=== PATIENT | female | born 1995 | race American Indian/Alaskan Native ===

== ENCOUNTER 2019-12-24 14:34 | Emergency (ER) | payer OTHER ==
[2019-12-24 15:01] VITALS: BP 111/74
[2019-12-24] MEDS ORDERED: ONDANSETRON 4 MG ODT TAB PO ONE (17:57)
[2019-12-24] MEDS ORDERED: HYOSCYAMINE SUBL 0.125 MG TAB SL ONE (17:57)
[2019-12-24 18:25] LABS: Basophils % (Auto) 0.3 % (0.0-1.8); Eosinophils % (Auto) 0.2 % (0.0-4.3); Hematocrit 39.5 % (30.3-42.9); Hemoglobin 13.1 gm/dl (10.1-14.3); Lymphocytes # (Auto) 0.6 K/mm3 (1.2-5.4); Lymphocytes % (Auto) 7.6 % (13.4-35.0); Mean Corpuscular HGB Conc 33 % (30-34); Mean Corpuscular Volume 87 fl (79-97); Monocytes # (Auto) 0.4 K/mm3 (0.0-0.8); Monocytes % (Auto) 4.7 % (0.0-7.3); Platelet Count 152 K/mm3 (140-440); Red Blood Count 4.56 M/mm3 (3.65-5.03); Red Cell Distribution Width 13.5 % (13.2-15.2)
[2019-12-24 18:45] LABS: Alanine Aminotransferase 6 units/L (7-56); Albumin 3.8 g/dL (3.9-5); Blood Urea Nitrogen 7 mg/dL (7-17); Calcium 8.6 mg/dL (8.4-10.2); Hemolysis Index 6
[2019-12-24 18:50] LABS: HCG Qualitative,Urine Negative (Negative)
[2019-12-24 18:57] LABS: BUN/Creatinine Ratio 10
[2019-12-24 19:02] LABS: Bacteria,Urine 1+ /HPF (Negative); Bilirubin,Urine NEG (Negative); Blood,Urine NEG (Negative); Color,Urine Yellow (Yellow); Mucus,Urine 1+ /HPF; Protein,Urine <15 mg/dL mg/dL (Negative); Urobilinogen,Urine < 2.0 mg/dL (<2.0)
--- NOTE | 2019-12-24 19:23 | Emergency Department Report ---
ED General Adult HPI - General Chief complaint: Nausea/Vomiting/Diarrhea Stated complaint: SICK Time Seen by Provider: 12/24/19 17:25 Source: patient Mode of arrival: Ambulatory Limitations: No Limitations - History of Present Illness Initial comments: Patient is a 24-year-old female presents emergency room with complaints of nausea and diarrhea that began yesterday. She has associated generalized weakness, fatigue, lightheadedness, mild abdominal cramping, urinary frequency. She denies any dysuria, dark urine, odor to the urine, vaginal discharge or irritation, vomiting, back pain, chest pain, shortness of breath, fever, cough. She denies any recent travel or sick contacts. She denies any past medical history. No allergies medications. Last menstrual cycle December 02. Severity scale (0 -10): 1 - Related Data Previous Rx's Medication Instructions Recorded Last Taken Type Acetaminophen/Codeine [Tylenol #3] 1 tab PO TID PRN #15 tab 01/09/15 Unknown Rx Acyclovir [Zovirax Tab] 800 mg PO Q12H #10 tab 01/09/15 Unknown Rx metroNIDAZOLE [Flagyl TAB] 500 mg PO Q12HR #14 tab 01/09/15 Unknown Rx metroNIDAZOLE 0.75% [Vandazole 1 applicator VG QHS #5 tube 07/07/15 Unknown Rx 0.75% VAGINAL] miSOPROStoL [Cytotec] 400 mcg PO Q4H #6 tablet 07/07/15 Unknown Rx Nitrofurantoin [place]/M-Cryst 100 mg PO Q12HR #14 capsule 03/20/18 Unknown Rx [Macrobid CAP] Amoxicillin [Amoxicillin TAB] 875 mg PO BID #20 tablet 07/26/18 Unknown Rx Ibuprofen [Motrin] 600 mg PO Q8H PRN #20 tablet 07/26/18 Unknown Rx Nystas/Diphen/Xyl Visc/Mylanta 15 ml MM Q4H PRN 5 Days ml 07/26/18 Unknown Rx [Magic Mouthwash] Ondansetron [Zofran Odt] 4 mg PO Q8HR PRN #7 tab.rapdis 12/24/19 Unknown Rx cephALEXin [Keflex] 500 mg PO BID 7 Days #14 cap 12/24/19 Unknown Rx Allergies Allergy/AdvReac Type Severity Reaction Status Date / Time No Known Allergies Allergy Verified 07/26/18 11:49 ED Review of Systems ROS: Stated complaint: SICK Other details as noted in HPI Comment: All other systems reviewed and negative ED Past Medical Hx - Past Medical History Previous Medical History?: Yes - Surgical History Past Surgical History?: No Additional Surgical History: - Social History Smoking Status: Never Smoker Substance Use Type: None - Medications Home Medications: Home Medications Medication Instructions Recorded Confirmed Last Taken Type Acetaminophen/Codeine [Tylenol #3] 1 tab PO TID PRN #15 tab 01/09/15 Unknown Rx Acyclovir [Zovirax Tab] 800 mg PO Q12H #10 tab 01/09/15 Unknown Rx metroNIDAZOLE [Flagyl TAB] 500 mg PO Q12HR #14 tab 01/09/15 Unknown Rx metroNIDAZOLE 0.75% [Vandazole 1 applicator VG QHS #5 tube 07/07/15 Unknown Rx 0.75% VAGINAL] miSOPROStoL [Cytotec] 400 mcg PO Q4H #6 tablet 07/07/15 Unknown Rx Nitrofurantoin [place]/M-Cryst 100 mg PO Q12HR #14 capsule 03/20/18 Unknown Rx [Macrobid CAP] Amoxicillin [Amoxicillin TAB] 875 mg PO BID #20 tablet 07/26/18 Unknown Rx Ibuprofen [Motrin] 600 mg PO Q8H PRN #20 tablet 07/26/18 Unknown Rx Nystas/Diphen/Xyl Visc/Mylanta 15 ml MM Q4H PRN 5 Days ml 07/26/18 Unknown Rx [Magic Mouthwash] Ondansetron [Zofran Odt] 4 mg PO Q8HR PRN #7 tab.rapdis 12/24/19 Unknown Rx cephALEXin [Keflex] 500 mg PO BID 7 Days #14 cap 12/24/19 Unknown Rx ED Physical Exam - General Limitations: No Limitations General appearance: alert, in no apparent distress - Head Head exam: Present: atraumatic, normocephalic - Eye Eye exam: Present: normal appearance - ENT ENT exam: Present: normal orophraynx, mucous membranes moist, TM's normal bilaterally, normal external ear exam - Respiratory Respiratory exam: Present: normal lung sounds bilaterally. Absent: respiratory distress, wheezes, rales, rhonchi, stridor, chest wall tenderness, accessory muscle use, decreased breath sounds, prolonged expiratory - Cardiovascular Cardiovascular Exam: Present: regular rate, normal rhythm, normal heart sounds. Absent: systolic murmur, diastolic murmur, rubs, gallop - GI/Abdominal GI/Abdominal exam: Present: soft, normal bowel sounds. Absent: distended, tenderness, guarding, rebound, rigid - Neurological Exam Neurological exam: Present: alert, oriented X3 - Psychiatric Psychiatric exam: Present: normal affect, normal mood - Skin Skin exam: Present: warm, dry, intact ED Course Vital Signs 12/24/19 14:56 Temperature 98.7 F Pulse Rate 101 H Respiratory 18 Rate Blood Pressure 111/74 [Right] O2 Sat by Pulse 98 Oximetry ED Medical Decision Making - Lab Data Result diagrams: 12/24/19 18:12 12/24/19 18:12 Lab Results 12/24/19 12/24/19 12/24/19 Range/Units 18:12 18:12 18:35 WBC 8.0 (4.5-11.0) K/mm3 RBC 4.56 (3.65-5.03) M/mm3 Hgb 13.1 (10.1-14.3) gm/dl Hct 39.5 (30.3-42.9) % MCV 87 (79-97) fl MCH 29 (28-32) pg MCHC 33 (30-34) % RDW 13.5 (13.2-15.2) % Plt Count 152 (140-440) K/mm3 Lymph % (Auto) 7.6 L (13.4-35.0) % [place] % (Auto) 4.7 (0.0-7.3) % Eos % (Auto) 0.2 (0.0-4.3) % Baso % (Auto) 0.3 (0.0-1.8) % Lymph # (Auto) 0.6 L (1.2-5.4) K/mm3 [place] # (Auto) 0.4 (0.0-0.8) K/mm3 Eos # (Auto) 0.0 (0.0-0.4) K/mm3 Baso # (Auto) 0.0 (0.0-0.1) K/mm3 Seg Neutrophils % 87.2 H (40.0-70.0) % Seg Neutrophils # 7.0 (1.8-7.7) K/mm3 Sodium 134 L (137-145) mmol/L Potassium 3.6 (3.6-5.0) mmol/L Chloride 101.1 (98-107) mmol/L Carbon Dioxide 19 L (22-30) mmol/L Anion Gap 18 mmol/L BUN 7 (7-17) mg/dL Creatinine 0.7 (0.6-1.2) mg/dL Estimated GFR > 60 ml/min BUN/Creatinine Ratio 10 % Glucose 95 (65-100) mg/dL Calcium 8.6 (8.4-10.2) mg/dL Total Bilirubin 0.30 (0.1-1.2) mg/dL AST 11 (5-40) units/L ALT 6 L (7-56) units/L Alkaline Phosphatase 67 (35-129) units/L Total Protein 7.1 (6.3-8.2) g/dL Albumin 3.8 L (3.9-5) g/dL Albumin/Globulin Ratio 1.2 % Urine Color Yellow (Yellow) Urine Turbidity Slightly-cloudy (Clear) Urine pH 5.0 (5.0-7.0) Ur Specific [place] 1.024 (1.003-1.030) Urine Protein <15 mg/dl (Negative) mg/dL Urine Glucose (UA) Neg (Negative) mg/dL Urine Ketones Neg (Negative) mg/dL Urine Blood Neg (Negative) Urine Nitrite Neg (Negative) Ur Reducing Substances Not Reportable Urine Bilirubin Neg (Negative) Urine Ictotest Not Reportable Urine Urobilinogen < 2.0 (<2.0) mg/dL Ur Leukocyte Esterase Mod (Negative) Urine WBC (Auto) 10.0 H (0.0-6.0) /HPF Urine RBC (Auto) 5.0 (0.0-6.0) /HPF U Epithel Cells (Auto) 10.0 (0-13.0) /HPF Urine Bacteria (Auto) 1+ (Negative) /HPF Urine Mucus 1+ /HPF Urine Yeast (Budding) Few /HPF Urine HCG, Qual Negative (Negative) - Medical Decision Making Patient is a 24-year-old female presents emergency room with complaints of nausea and diarrhea that began yesterday. She has associated generalized weakness, fatigue, lightheadedness, mild abdominal cramping, urinary frequency. She denies any dysuria, dark urine, odor to the urine, vaginal discharge or irritation, vomiting, back pain, chest pain, shortness of breath, fever, cough. She denies any recent travel or sick contacts. She denies any past medical history. No allergies medications. Last menstrual cycle December 02. Vitals are stable. No abnormality on physical exam as documented in chart. Labs are stable. UA shows evidence of UTI. no clinical signs of dehydration. Patient given Levsin and Zofran while in the emergency department symptoms resolved and she is feeling much better and ready for home. Patient is able to tolerate p.o. intake. Patient given prescription for Keflex and Zofran. Advised patient Please take medication as prescribed. Increase your fluid intake. Follow-up with a primary care doctor. Return to emergency room any new or worsening symptoms. - Differential Diagnosis UTI, viral syndrome, food poisoning, gastroenteritis, colitis, dehydration Critical care attestation.: If time is entered above; I have spent that time in minutes in the direct care of this critically ill patient, excluding procedure time. ED Disposition Clinical Impression: Nausea Diarrhea Qualifiers: Diarrhea type: unspecified type Qualified Code(s): R19.7 - Diarrhea, unspe cified UTI (urinary tract infection) Qualifiers: Urinary tract infection type: acute cystitis Hematuria presence: without h ematuria Qualified Code(s): N30.00 - Acute cystitis without hematuria Disposition: - TO HOME OR SELFCARE Is pt being admited?: No Does the pt Need Aspirin: No Condition: Stable Instructions: Urinary Tract Infection in Women (ED), Viral Syndrome (ED) Additional Instructions: Please take medication as prescribed. Increase your fluid intake. Follow-up with a primary care doctor. Return to emergency room any new or worsening symptoms. Prescriptions: cephALEXin [Keflex] 500 mg PO BID 7 Days #14 cap Ondansetron [Zofran Odt] 4 mg PO Q8HR PRN #7 tab.rapdis PRN Reason: Nausea And Vomiting Referrals: DAHIANA CLARK MD [Primary Care Provider] - 2-3 Days LETITIA SAWYER MD [Staff Physician] - 2-3 Days [facility] [Provider Group] - 2-3 Days Time of Disposition: 19:21 Print Language: LITHUANIAN
== END 2019-12-24 19:25 | disposition home or self-care (01) ==
LOC: ED 14:34
DX: N39.0 Urinary tract infection, site not specified (principal); Z79.1 Long term (current) use of non-steroidal anti-inflammatories (NSAID); Z79.2 Long term (current) use of antibiotics; Z79.899 Other long term (current) drug therapy
CPT/HCPCS: 36415; 80053; 81001; 81025; 85025; 87086; 99283; Q0162